=== PATIENT | male | born 1940 | race Caucasian/White ===

== ENCOUNTER 2019-11-18 08:50 | Day surgery (SDC) | payer MEDICARE, BC ==
[2019-11-17 16:17] LABS: BASOPHILS % (AUTO) 0.7 % (0-1); EOSINOPHILS # (AUTO) 0.2 X10'3 (0-0.9); EOSINOPHILS % (AUTO) 3.8 % (0-6); HEMATOCRIT 41.1 % (42.0-52.0); HEMOGLOBIN 13.9 g/dl (14.0-17.9); LYMPHOCYTES # (AUTO) 1.1 X10'3 (1.1-4.8); LYMPHOCYTES % (AUTO) 19.6 % (21-51); MEAN CORPUSCULAR HEMOGLOBIN 32.3 PG (27.0-31.0); MEAN CORPUSCULAR HGB CONC 33.7 g/dL (33.0-36.5); MEAN CORPUSCULAR VOLUME 95.7 FL (78-98); MEAN PLATELET VOLUME 10.9 FL (7.4-10.4); MONOCYTES # (AUTO) 0.5 X10'3 (0-0.9); MONOCYTES % (AUTO) 8.9 % (2-12); NEUTROPHILS # (AUTO) 3.9 X10'3 (1.8-7.7); PLATELET COUNT 122 X10'3 (140-440); RED CELL DISTRIBUTION WIDTH 13.4 % (11.5-14.5); WHITE BLOOD COUNT 5.8 X10'3 (4.5-11.0)
[2019-11-17 16:28] LABS: PARTIAL THROMBOPLASTIN TIME 30 SECONDS (22-32)
[2019-11-17 16:32] LABS: ALANINE AMINOTRANSFERASE 53 U/L (12-78); ALBUMIN 3.4 G/DL (3.4-5.0); ALKALINE PHOSPHATASE 60 IU/L (46-116); ANION GAP 7 (8-16); ASPARTATE AMINO TRANSFERASE 37 U/L (10-37); BILIRUBIN,TOTAL 0.9 MG/DL (0.1-1.0); BLOOD UREA NITROGEN 28 MG/DL (7-18); BUN/CREATININE RATIO 20.4 (5.4-32.0); CALCIUM 8.9 MG/DL (8.5-10.1); CHLORIDE 111 MMOL/L (99-107); CREATININE 1.37 MG/DL (0.60-1.10); GLUCOSE 97 MG/DL (70-104); SODIUM 144 MMOL/L (135-145); TOTAL CARBON DIOXIDE 26.1 MMOL/L (24-32); TOTAL PROTEIN 6.9 G/DL (6.4-8.2); eGFR 50 ML/MIN
[~2019-11-18] VITALS: Ht 182.9 cm; Wt 89.9 kg
[2019-11-18] VITALS (14 sets, daily range): BP systolic 133–159; BP diastolic 53–103
[2019-11-18] MEDS ORDERED: insulin Lispro (HumaLOG) vial - multi-dose SQ SCH (09:20)
[2019-11-18] MEDS ORDERED: diphenhydrAMINE 25mg capsule PO PRN (09:20)
[2019-11-18] MEDS ORDERED: dextrose ORAL solution 15 GM/59 ML bottle PO PRN ×2 (09:20)
[2019-11-18] MEDS ORDERED: LORazepam 0.5 MG tablet PO PRN (09:20)
[2019-11-18] MEDS ORDERED: glucagon, human recombinant 1mg kit SUBCUT PRN (09:20)
[2019-11-18] MEDS ORDERED: normal saline 1,000 ML IV SCH (09:20)
[2019-11-18] MEDS ORDERED: dextrose 50%-water 50ml dispensing syringe IV PRN ×2 (09:20)
[2019-11-18] MEDS ORDERED: nitroGLYCERIN 0.4mg SUBLingual tab SL PRN (09:20)
[2019-11-18] MEDS ORDERED: NIFE60TA79 PO (10:10)
[2019-11-18] MEDS ORDERED: PANT40TA4 PO (10:10)
[2019-11-18] MEDS ORDERED: FLO0.4C PO (10:10)
[2019-11-18] MEDS ORDERED: AMLO2.5T2 PO (10:10)
[2019-11-18] MEDS ORDERED: METF-950 PO (10:10)
[2019-11-18] MEDS ORDERED: SIMV-42 PO (10:10)
[2019-11-18] MEDS ORDERED: ERGO400C PO (10:10)
[2019-11-18] MEDS ORDERED: LISI-600 PO (10:10)
[2019-11-18] MEDS ORDERED: NIFEDIAC PO (10:10)
[2019-11-18] MEDS ORDERED: MULT-227 PO (10:10)
[2019-11-18] MEDS ORDERED: METO-395 PO (10:10)
[2019-11-18] MEDS ORDERED: TADA20TA PO (10:13)
[2019-11-18] MEDS ORDERED: ASPI-842 PO (10:14)
[2019-11-18] MEDS ORDERED: midazolam 2 mg/2 ml injection ONE ×2 (10:27→11:11)
[2019-11-18] MEDS ORDERED: fentaNYL/PF 50MCG/1 ML 2ML syringe ONE (10:28)
[2019-11-18] MEDS ORDERED: iohexol 350 MG/ML 50ML vial IV ONE (10:28)
[2019-11-18] MEDS ORDERED: iohexol 350MG/ML 100ml bottle IV ONE (10:28)
[2019-11-18] MEDS ORDERED: LIDOcaine 1% (10mg/ml)w/preservative injection 20ml MDV ONE (10:28)
[2019-11-18] MEDS ORDERED: nitroGLYCERIN-Tridil 50MG/D5W 250 ML IV ONE (11:11)
[2019-11-18 11:30] LABS: ISTAT HGB ART 12.9 g/dl (14.0-18.0); ISTAT Hct ART 38 %PCV (42-52); ISTAT O2 SATURATION ARTERIAL 94 % (95-98); ISTAT SOURCE ART
[2019-11-18 11:45] LABS: ISTAT Hct MIX 38 %PCV (42-52); ISTAT O2 SATURATION MIX VENOUS 77 % (60-80); ISTAT SOURCE MIX
[2019-11-18] MEDS ORDERED: ondansetron/PF 4mg/2ml inj IV PRN (12:00)
[2019-11-18] MEDS ORDERED: HYDROcodone/acetaminophen 5mg/325mg tablet PO PRN (12:00)
[2019-11-18] MEDS ORDERED: proCHLORperazine 10 MG/2 ml inj IV PRN (12:05)
[2019-11-18] MEDS ORDERED: OXAZEpam 15mg capsule PO PRN (12:05)
[2019-11-18] MEDS ORDERED: hydrALAZINE 20mg/ml inj. IV ONE (12:05)
[2019-11-18] MEDS ORDERED: HYDROcodone/acetaminophen 10/325mg tab PO PRN (12:05)
[2019-11-18 17:47] LABS: HEMOGLOBIN A1C 5.5 % (4.5-6.2)
[2019-11-18] MEDS ORDERED: insulin glargine (Lantus) pen - multi-dose SQ SCH (21:00)
== END 2019-11-18 19:00 | disposition home or self-care (01) ==
LOC: SSTAY O 08:50
PROVIDERS: ATTEND Internal Medicine Cardiovascular Disease
DX: R94.39 Abnormal result of other cardiovascular function study (principal); I25.10 Atherosclerotic heart disease of native coronary artery without angina pectoris; M47.9 Spondylosis, unspecified; K21.9 Gastro-esophageal reflux disease without esophagitis; E11.9 Type 2 diabetes mellitus without complications; J44.9 Chronic obstructive pulmonary disease, unspecified; Z98.41 Cataract extraction status, right eye; Z98.42 Cataract extraction status, left eye; Z87.891 Personal history of nicotine dependence; Z98.890 Other specified postprocedural states; Z79.01 Long term (current) use of anticoagulants; Z79.899 Other long term (current) drug therapy; Z79.82 Long term (current) use of aspirin; Z86.73 Personal history of transient ischemic attack (TIA), and cerebral infarction without residual deficits; R06.00 Dyspnea, unspecified
CPT/HCPCS: 36415; 71046; 80053; 82803; 82948; 83036; 83880; 85014; 85025; 85610; 85730; 93460; 99152; 99153; C1760; C1769; J1644; J1815; J2001; J2250; J3010; J7030; Q0163; Q9967; A4620; A6258; J3490

== ENCOUNTER 2024-07-02 10:21 | Outpatient (CLI) | payer MEDICARE, BC ==
[~2024-07-02 10:21] MED LIST: AMLO2.5T2 PO; ASPI-842 PO; ERGO400C PO; FLO0.4C PO; LISI20TA28 PO; METF-1203 PO; METO-395 PO; MULT-227 PO; NIFE-73 PO; PANT40TA54 PO; SIMV-42 PO; TADA20TA PO; iohexol 350 MG/ML 50ML vial IV ONE; iohexol 350MG/ML 100ml bottle IV ONE
== END 2024-07-02 23:59 | disposition home or self-care (01) ==
LOC: RAD 10:21
PROVIDERS: ATTEND Surgery
DX: I70.203 Unspecified atherosclerosis of native arteries of extremities, bilateral legs (principal); I70.1 Atherosclerosis of renal artery; I77.4 Celiac artery compression syndrome; I70.8 Atherosclerosis of other arteries; I70.0 Atherosclerosis of aorta; J98.11 Atelectasis; J98.4 Other disorders of lung; N28.1 Cyst of kidney, acquired
CPT/HCPCS: 75635; Q9967

== ENCOUNTER 2024-09-27 13:26 | Inpatient (IN) | payer MEDICARE, BC ==
[~2024-09-27] VITALS: Ht 182.9 cm; Wt 77.2 kg
[~2024-09-27 13:26] MED LIST changes: -AMLO2.5T2 PO; +APIX5TAB3 PO; -ASPI-842 PO; +ASPI81TA52 PO; +CEFD300C3 PO; +CHOL500061 PO; +DOXY25TA19 PO; -ERGO400C PO; -FLO0.4C PO; -METF-1203 PO; -MULT-227 PO; -PANT40TA54 PO; -iohexol 350 MG/ML 50ML vial IV ONE; -iohexol 350MG/ML 100ml bottle IV ONE
[2024-09-27] MEDS ORDERED: TRAM50TA2 PO (14:50)
[2024-09-27] MEDS ORDERED: METF-1203 PO (14:50)
[2024-09-27 15:46] LABS: BASOPHILS % (AUTO) 0.2 % (0-1); EOSINOPHILS % (AUTO) 0.3 % (0-6); HEMATOCRIT 40.9 % (42.0-52.0); HEMOGLOBIN 13.6 g/dl (14.0-17.9); LYMPHOCYTES # (AUTO) 0.8 X10'3 (1.1-4.8); LYMPHOCYTES % (AUTO) 4.6 % (21-51); MEAN CORPUSCULAR HEMOGLOBIN 30.6 PG (27.0-31.0); MEAN CORPUSCULAR HGB CONC 33.3 g/dL (33.0-36.5); MEAN CORPUSCULAR VOLUME 91.8 FL (78-98); MEAN PLATELET VOLUME 11.1 FL (7.4-10.4); MONOCYTES # (AUTO) 1.1 X10'3 (0-0.9); MONOCYTES % (AUTO) 6.6 % (2-12); NEUTROPHILS # (AUTO) 15.4 X10'3 (1.8-7.7); NEUTROPHILS % (AUTO) 88.3 % (42-75); PLATELET COUNT 149 X10'3 (140-440); RED BLOOD COUNT 4.45 X10'6 (4.70-6.10); RED CELL DISTRIBUTION WIDTH 12.7 % (11.5-14.5); WHITE BLOOD COUNT 17.4 X10'3 (4.5-11.0)
[2024-09-27 15:55] LABS: POTASSIUM 3.8 MMOL/L (3.5-5.1)
[2024-09-27 16:02] LABS: ALBUMIN 2.9 G/DL (3.4-5.0); ANION GAP 9 (8-16); BLOOD UREA NITROGEN 36 MG/DL (7-18); BUN/CREATININE RATIO 22.5 (10.0-20.0); CALCIUM 9.2 MG/DL (8.5-10.1); CHLORIDE 100 MMOL/L (99-107); GLUCOSE 127 MG/DL (70-104); SODIUM 136 MMOL/L (135-145); TOTAL CARBON DIOXIDE 26.9 MMOL/L (24-32); eCRCL 36 ML/MIN; eGFR 41 ML/MIN
[2024-09-27] MEDS: piperacillin/tazo 3.375gm/50ml 50 ML IV ONE (16:32)
[2024-09-27] MEDS: ringers solution, lacted 1,000 ML IV ONE (16:32)
--- NOTE | 2024-09-27 16:43 | RADIOLOGY REPORT ---
CHEST RADIOGRAPH Indication: fever Technique: Single frontal view of the chest was obtained Comparison: DI CHEST,SINGLE VIEW on DOS: 09/04/24 FINDINGS: Lines and Tubes: None Lungs and Pleura: No focal consolidation. No effusion. No pneumothorax. Cardiomediastinal contours: Unremarkable Bones: No acute osseous abnormality. IMPRESSION: 1. No acute cardiopulmonary disease.
[2024-09-27] MEDS: normal saline 1000ml 1,000 ML IV SCH ×2 (17:05→20:22)
--- NOTE | 2024-09-27 17:11 | Physician Documentation ---
History of Present Illness ~ Chief Complaint: Wound Re-Check Stated Complaint: FEVER/OPEN WOUND Time Seen by MD: 16:04 OK to notify your PCP?: Yes HPI 84-year-old gentleman who has right femoral endarterectomy done by Dr. Lorenzo August and discharged from the in the [facility] on 22 of September came back to the ER by ambulance because of low-grade fever and concern for infection. Patient does not have any respiratory symptoms and there is no increasing pain or swelling in the wound area as well as lower extremities especially right side. He does have a small grade 1 decubitus ulceration in the sacral area. The area has no pain or skin break. Patient has been ambulatory with a wound VAC. no nausea vomiting, no chest pain no shortness of breath. No urinary symptoms. Tetanus within 5 years?: No Medication Reconciliation Allergies: Coded Allergies: No Known Allergies (Unverified , 09/27/24) Scheduled Apixaban (Eliquis), 1 TAB PO BID, (Reported) Aspirin (Aspirin EC), 1 TAB PO DAILY Cholecalciferol (Vitamin D3) (Vitamin D3), 1 TAB PO DAILY, (Reported) Ciprofloxacin/Ciprofloxa Hcl (Ciprofloxacin Er 500 Mg Tablet), 1 TAB PO Q12H Doxylamine Succinate (Unisom Sleep Aid), 25 MG PO HS, (Reported) Lactobacillus Rhamnosus (Culturelle), 10,000 MMU PO BID Lisinopril (Lisinopril), 40 MG PO DAILY Metformin HCl (Metformin HCl), 1 TAB PO BID, (Reported) Metoprolol Succinate (Metoprolol Succinate), 1 TAB PO BID, (Reported) Nifedipine (Afeditab Cr), 1 TAB PO DAILY, (Reported) Simvastatin* (Zocor*), 1 TAB PO DAILY, (Reported) Tadalafil (Cialis), 1 TAB PO PRN, (Reported) Scheduled PRN Tramadol Hcl (Tramadol Hcl), 1 TAB PO Q4H PRN for pain, (Reported) Discontinued Medications Cefdinir (Cefdinir), 1 CAP PO Q12H Lisinopril (Lisinopril), 1 TAB PO DAILY, (Reported) Past Medical History Patient History: FH: heart disease MOTHER, , Age: 68 FH: lung cancer FATHER (liver and lung cancer), , Age: 72 Review of Systems ROS As stated above in the HPI, otherwise all systems are reviewed and negative. Physical Exam Vital Signs: RN Vital Signs have been reviewed: Yes, Temperature: 98.0, Source: Oral, Heart Rate: 67, Respiratory Rate: 17, BP: 160/60, Pulse Oximetry: 98, Weight: 77.200 Oxygen Flow Rate: 0 Physical Exam Reviewed vital signs and they are well within normal range. Const: Patient is awake alert and active , not in discomfort Head: Atraumatic Eyes: Normal Conjunctiva ENT: Normal External Ears, Nose and Mouth. Moist mucous membranes Neck: Full range of motion. No meningismus Resp: Clear to auscultation bilaterally. Normal work of breathing Cardio: Regular rate and rhythm, no murmurs. Skin well perfused Abd: Soft, non-tender, non-distended. Normal bowel sounds. No rebound or guard ing Skin: No petechiae or rashes. Warm and dry Back: No midline or flank tenderness Ext: No cyanosis, or edema Extremities: Left side is normal Right side lower leg there is no undue redness or so tenderness. No calf tenderness. Dorsalis pedis is difficult to palpate. The toes are warm and good range of movement. Neuro: Awake and alert Psych: Normal Mood and Affect Progress Progress Note 1930: The case was discussed with the hospitalists who were informed on the alvarado ents case and kindly agreed to admission of the patients. Results/Orders Reviewed/noted all lab results: Yes Results/Orders Orders - TWIN HOUSE MD Page Hospitalist (09/27/24 18:40) Fill Out Med Reconciliation (09/27/24 18:40) Laboratory Tests Test 09/27/24 15:01 09/27/24 17:06 09/27/24 17:22 White Blood Count 17.4 H Red Blood Count 4.45 L Hemoglobin 13.6 L Hematocrit 40.9 L Mean Corpuscular Volume 91.8 Mean Corpuscular Hemoglobin 30.6 Mean Corpuscular Hemoglobin Concent 33.3 Red Cell Distribution Width 12.7 Platelet Count 149 Mean Platelet Volume 11.1 H Neutrophils (%) (Auto) 88.3 H Lymphocytes (%) (Auto) 4.6 L Monocytes (%) (Auto) 6.6 Eosinophils (%) (Auto) 0.3 Basophils (%) (Auto) 0.2 Neutrophils # (Auto) 15.4 H Lymphocytes # (Auto) 0.8 L Monocytes # (Auto) 1.1 H Eosinophils # (Auto) 0.0 Basophils # (Auto) 0.0 CBC Comment Sodium Level 136 Potassium Level 3.8 Chloride Level 100 Carbon Dioxide Level 26.9 Anion Gap 9 Blood Urea Nitrogen 36 H Creatinine 1.60 H Estimated GFR/1.73 m2 41 BUN/Creatinine Ratio 22.5 H Glucose Level 127 H Osmolality 295 Lactic Acid Level 2.8 H 2.3 H Calcium Level 9.2 C-Reactive Protein 4.70 H Albumin 2.9 L Procalcitonin < 0.05 Chemistry Comments Urine Specimen Description Non-specified Urine Color Yellow Urine Clarity Slightly cloudy Urine pH 6.0 Urine Specific [place] 1.010 Urine Protein Trace Urine Glucose (UA) Negative Urine Ketones Trace H Urine Occult Blood Moderate H Urine Nitrite Positive H Urine Bilirubin Negative Urine Urobilinogen 0.2 Urine Leukocyte Esterase Small H Urine RBC 20-50 Urine WBC 30-50 H Urine Squamous Epithelial Cells None seen Urine Bacteria 1+ Urine Mucus Few Urine Culture Indicated Indicated Volume Urine Centrifuged 10 ml Urine Comment Microbiology Date/Time Source Procedure Growth Status 09/27/24 18:06 Urine Nonspecified Urine Culture - Final Pseudomonas Aeruginosa Enterococcus Faecalis Complete 09/27/24 15:57 Blood Arm Right Blood Culture - Preliminary NO GROWTH AFTER 4 DAYS Resulted Re-Evaluation Re-Evaluation : Re-Evaluation: Improved Progress Patient was seen by the prior physician and signed out to me for admission. Patient is on CAT scan at a questionable hematoma versus abscess postoperatively for right femoral endarterectomy fever leukocytosis was then admitted to the hospitalist service. Patient already received antibiotics laboratory work blood cultures from the morning physician. EKG/XRAY/CT/US/VASC/MRI Chest X-Ray : Additional Comments CHEST RADIOGRAPH Indication: fever Technique: Single frontal view of the chest was obtained Comparison: DI CHEST,SINGLE VIEW on DOS: 09/04/24 FINDINGS: Lines and Tubes: None Lungs and Pleura: No focal consolidation. No effusion. No pneumothorax. Cardiomediastinal contours: Unremarkable Bones: No acute osseous abnormality. IMPRESSION: 1. No acute cardiopulmonary disease. Electronically Signed by:AMRIT HO MD Date & Time: 09/27/[address] #1: Impression Patient: JONAS RUDOLPH Medical Record: [id number] [facility] : 1940, Age: 84 Sex: Male Location: ER Patient Status: [facility] ER Service Date/Time: 09/27/241745 Ordering Physician: AGUSTÍN RAMIREZ MD Exam: CT LOWER EXTREMITY INDICATION: pain right leg COMPARISON: None TECHNIQUE: CT of the right was performed without contrast. Volume transverse images were obtained and reconstructed in multiple planes using bone and soft tissue algorithms. CONTRAST: None Radiation Dose Information: CT Dose: CTDI volume is 17.76 mGy. Dose-length product is 1241.77 mGy*cm FINDINGS: The alignment is normal. The joint spaces are normal. There is no fracture, dislocation, or focal osseous lesions. Right total knee arthroplasty. The soft tissues are normal. IMPRESSION: 1. Distal femur intact. 2. Right total knee arthroplasty in place with beam hardening artifact obscuring detail. 3. All CT scans at this medical facility are performed using dose modulation techniques as appropriate to a performed exam including the following: Automated exposure control was utilized; adjustment of the MA and/or KV according to patient size; and use of iterative reconstruction technique. Electronically Signed by:JONAS BROOKS Jr. DO Date & Time: 09/27/241834 CT #2: Impression History: pain Comparison Study: 07/02/2024 Technique: Multidetector spiral CT of the pelvis was performed from iliac crests to pubic symphysis. No intravenous contrast was administered. Axial, coronal and sagittal multiplanar reformats were performed by the technologist on a separate workstation. Radiation Dose : CT Dose: CTDI volume is 17 mGy. Dose-length product is 613 mGy*cm Findings: Visualized bowel: Unremarkable. Ascites: Absent Lymphadenopathy: No pelvic or mesenteric lymphadenopathy. Pelvis Wall : Interval postsurgical changes related to the right groin with a wound VAC and surgical skin cheng in place. There is a regional superficial collection along the course of the right femoral vessels, measuring 7.7 x 2.7 x 10.0 cm. There is adjacent fat stranding in the right proximal thigh. Vasculature: The visualized abdominal aorta is normal in size and caliber. Abdominal and pelvic vessels are limited in evaluation without intravenous contrast. Moderate atherosclerotic calcifications noted. Pelvic Organs: Unremarkable Musculoskeletal: No aggressive focal bony lesions, acute fractures or dislocation. Degenerative changes. Bladder: Redemonstration of suprapubic catheter. IMPRESSION: 1. Interval postsurgical changes related to the right groin. Regional superficial collection along the course of the right femoral vessels, measuring 7.7 x 2.7 x 10.0 cm, favor hematoma versus seroma, with abscess not excluded, limited in evaluation without intravenous contrast. Electronically Signed by:AMRIT HO MD Date & Time: 09/27/241846 Medical Decision Making Findings During the physical examination, the findings suggestive of acute life- threatening condition such as JVD, tracheal deviation, acidotic breathing, noisy stridorous breath sounds, pulses paradoxus, muffled heart sounds, unequal breath sounds, abdominal rigidity and rebound tenderness, focal neurological deficits, cool clammy skin, severe hypotension, severe tachycardia or bradycardia are absent. The patient is concerned about the wound infection. There is no other source of low-grade fever. Patient does not have any respiratory symptoms, flu-like symptoms, urinary symptoms. His bed sore is grade 1 and is not broken. (skin intact) Patient is given Zosyn after culture and we will be admitted to the hospital. I informed Dr. Lorenzo arrived the patient and he wants the patient to have CT scan of the pelvis without contrast. Patient will be admitted to the hospitalist services. Differential Dx:Considerations: Include: Abscess, Cellulitis, Dressing change, Healing wound, Other Departure Disposition: 09 ADMITTED INPATIENT Admitted to Inpatient Unit: to hospitalist, to surgeon Admission Level of Care: Med/Surg with Tele Impression: Primary Impression: Low grade fever Additional Impression: Visit for wound check Condition: Guarded Referrals: NO PRIMARY CARE PROVIDER (PCP) Prescriptions Lactobacillus Rhamnosus (Culturelle) 10 Billion Cell Capsule 28574 MMU PO BID for 30 Days, #60 CAP Prov: TIFFANIE PENALOZA 10/01/24 Lisinopril (Lisinopril) 20 Mg Tablet 40 MG PO DAILY for 30 Days, #60 TAB Prov: TIFFANIE PENALOZA 10/01/24 Ciprofloxacin/Ciprofloxa Hcl (Ciprofloxacin Er 500 Mg Tablet) 500 Mg Tbmp.24hr 1 TAB PO Q12H for 5 Days, #10 TAB Prov: TIFFANIE PENALOZA 10/01/24 Education Educated: Patient Educated regarding: diagnosis Signature Scribe Signature: x Scribed for Harsh Vasquez MD by Coco Porras . 09/27/24 19:57 (melanie atkins) Attestation: The note accurately reflects work and decisions made by me.Twin House MD 10/02/24 08:19 AGUSTÍN Bella MD September 27, 2024 17:11 COCO VILLANUEVA September 27, 2024 19:57 TWIN HOUSE MD October 02, 2024 08:19
[2024-09-27 17:59] LABS: BILIRUBIN,URINE NEGATIVE (Neg); CLARITY,URINE SLIGHTLY CLOUDY (Clear); COLOR,URINE YELLOW (Yellow); GLUCOSE, URINE NEGATIVE (Neg); KETONES,URINE TRACE mg/dl (Neg); LEUKOCYTE ESTERASE ,URINE SMALL (Neg); NITRITES, URINE POSITIVE (Neg); OCCULT BLOOD,URINE MODERATE (Neg); PROTEIN,URINE TRACE mg/dl (Neg); UROBILINOGEN,URINE 0.2 E.U/dL (0.2-1.0)
[2024-09-27 18:04] LABS: UA COLLECTION TYPE NON-SPECIFIED
[2024-09-27 18:05] LABS: BACTERIA,URINE 1+ /HPF (Neg); RBC,URINE 20-50 /HPF (0-2)
[2024-09-27 18:06] LABS: MUCUS STRANDS FEW /LPF (Neg); SQUAMOUS EPITHELIAL CELL,UR NONE SEEN /LPF (FEW); WBC,URINE 30-50 /HPF (0-4)
--- NOTE | 2024-09-27 18:38 | RADIOLOGY REPORT ---
INDICATION: pain right leg COMPARISON: None TECHNIQUE: CT of the right was performed without contrast. Volume transverse images were obtained and reconstructed in multiple planes using bone and soft tissue algorithms. CONTRAST: None Radiation Dose Information: CT Dose: CTDI volume is 17.76 mGy. Dose-length product is 1241.77 mGy*cm FINDINGS: The alignment is normal. The joint spaces are normal. There is no fracture, dislocation, or focal osseous lesions. Right total knee arthroplasty. The soft tissues are normal. IMPRESSION: 1. Distal femur intact. 2. Right total knee arthroplasty in place with beam hardening artifact obscuring detail. 3. All CT scans at this medical facility are performed using dose modulation techniques as appropriat e to a performed exam including the following: Automated exposure control was utilized; adjustment of the MA and/or KV according to patient size; and use of iterative reconstruction technique.
--- NOTE | 2024-09-27 18:52 | RADIOLOGY REPORT ---
History: pain Comparison Study: 07/02/2024 Technique: Multidetector spiral CT of the pelvis was performed from iliac crests to pubic symphysis. No intravenous contrast was administered. Axial, coronal and sagittal multiplanar reformats were pe rformed by the technologist on a separate workstation. Radiation Dose : CT Dose: CTDI volume is 17 mGy. Dose-length product is 613 mGy*cm Findings: Visualized bowel: Unremarkable. Ascites: Absent Lymphadenopathy: No pelvic or mesenteric lymphadenopathy. Pelvis Wall : Interval postsurgical changes related to the right groin with a wound VAC and surgical skin cheng in place. There is a regional superficial collection along the course of the right femor al vessels, measuring 7.7 x 2.7 x 10.0 cm. There is adjacent fat stranding in the right proximal thig h. Vasculature: The visualized abdominal aorta is normal in size and caliber. Abdominal and pelvic vess els are limited in evaluation without intravenous contrast. Moderate atherosclerotic calcifications n oted. Pelvic Organs: Unremarkable Musculoskeletal: No aggressive focal bony lesions, acute fractures or dislocation. Degenerative duarte es. Bladder: Redemonstration of suprapubic catheter. IMPRESSION: 1. Interval postsurgical changes related to the right groin. Regional superficial collection along th e course of the right femoral vessels, measuring 7.7 x 2.7 x 10.0 cm, favor hematoma versus seroma, w ith abscess not excluded, limited in evaluation without intravenous contrast.
[2024-09-27] MEDS ORDERED: potassium Cl 20 mEq SR tablet PO PRN ×2 (19:45)
[2024-09-27] MEDS ORDERED: magnesium Cl slow-release 64mg tablet PO PRN (19:45)
[2024-09-27] MEDS ORDERED: ondansetron/PF 4mg/2ml inj IV PRN (19:45)
[2024-09-27] MEDS ORDERED: acetaminophen 325mg tablet PO PRN (19:45)
[2024-09-27] MEDS ORDERED: magnesium sulf-water 4G/100mL 100 ML IV PRN (19:45)
[2024-09-27] MEDS ORDERED: potassium Cl 40MEQ/1/2NS 520ml 520 ML IV PRN (19:45)
[2024-09-27] MEDS ORDERED: morphine 2 MG/ML inj. syringe IV PRN ×2 (19:45)
[2024-09-27] MEDS ORDERED: mag hydrox/Alum hydrox/simeth 30ml oral suspension PO PRN (19:45)
[2024-09-27] MEDS ORDERED: magnesium sulf-water 2g/50mL 50 ML IV PRN (19:45)
[2024-09-27] MEDS: K and/or MAG REPLACEMENT MC SCH (20:14)
[2024-09-27] MEDS: heparin, porcine 5000 units/ml vial SQ SCH (20:23)
[2024-09-27] MEDS: docusate sod 100mg capsule PO SCH (20:23)
--- NOTE | 2024-09-27 21:11 | HISTORY AND PHYSICAL-Residence ---
History & Physical Providers to CC Resident Creating Document: BULL LORENZO, RES ~ History of Present Illness Primary Medical Doctor: Dr. Dallas Stanton. Reason for Admit\Complaint: Fever sensation History of Present Illness PCP: Dr. Dallas Stanton. Hide Puller: Dr. Henriquez Urologist: Dr Hoang 84-year-old male patient with past medical history of AFib, prostate cancer, melanoma, hypertension, right femoral artery stenosis, dyslipidemia came to the hospital with chief complaint of subjective fever. The patient reports that he noticed this morning fever sensation and associated nausea. The patient also noticed some generalized weakness for approximately two days. Due to his fever sensation his took a thermometer and measured his temperature noticing 99.7-100 F degrees which prompted him to call to the ambulance and come to the hospital due to concerns of infection. The patient denies any diarrhea, abdominal pain, cough, shortness of breath, chest pain, palpitations. The patient mentioned that he got a right femoral artery stenosis, he underwent femoral endarterectomy by Dr. Lorenzo on August. The patient has a wound VAC. Allergies: Coded Allergies: No Known Allergies (Unverified , 09/27/24) Home Medications Home Medications Active Aspirin EC (Aspirin) 81 Mg Tablet.dr 1 Tab PO DAILY 30 Days Cefdinir 300 Mg Capsule 1 Cap PO Q12H 7 Days Reported Metformin HCl 500 Mg Tablet 1 Tab PO BID Tramadol Hcl (Tramadol HCl) 50 Mg Tablet 1 Tab PO Q4H PRN Unisom Sleep Aid (Doxylamine Succinate) 25 Mg Tablet 25 Mg PO HS Vitamin D3 (Cholecalciferol (Vitamin D3)) 125 Mcg (5000 Unit) Tab.rapdis 1 Tab PO DAILY Eliquis (Apixaban) 5 Mg Tablet 1 Tab PO BID Metoprolol Succinate 25 Mg Tab.sr.24h 1 Tab PO BID Cialis (Tadalafil) 20 Mg Tablet 1 Tab PO PRN Lisinopril 20 Mg Tablet 1 Tab PO DAILY Afeditab Cr (Nifedipine) 60 Mg Tablet.sa 1 Tab PO DAILY Zocor* (Simvastatin) 20 Mg Tablet 1 Tab PO DAILY Past Medical History Past Medical History AFib. Prostate cancer. Melanoma. Hypertension. Right femoral artery stenosis s/p endarterectomy. Dyslipidemia. Past Surgical History Surgical History Comment Bilateral knee replacement. Left inguinal surgical repair. Right femoral endarterectomy. Family History Family History: FH: heart disease MOTHER, , Age: 68 FH: lung cancer FATHER (liver and lung cancer), , Age: 72 Past Social History Smoking: Quit greater than 1 year (The patient endorses that he quit smoking 20 years ago. He used to smoke pack a day for 44 years.) Alcohol Use: Sober (The patient endorses that he used to drink one martini a day for two years. 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 HEENT: Conjunctive are pink, sclerae clear, no icterus, pupil is equal in both sides, reactive to light, no ear discharge, no pharyngeal erythema or an edema. Neck: Supple, no JVD, no lymphadenopathy and thyromegaly. Chest: Equal air entry on both lungs, no additional sounds no rhonchi no wheezing at the moment. Cardiovascular: S1-S2 irregular rhythm and rate, no gallops, no rubs, no murmurs Abdomen: No visible peristalsis, Bowel sounds present on auscultation, soft, nontender, no guarding, no rigidity, presence of suprapubic catheter. Extremities: No obvious deformities, no pitting edema bilaterally, capillary refill intact, diminished pulse in the right lower extremity, presence of wound VAC in the right lower iliac fossa. Central Nervous System: No focal neurological deficits, no motor or sensory weakness in all 4 extremities, could move all 4 extremities, 2+ deep tendon reflexes, negative Babinski. Musculoskeletal: No joint swelling, deformities, inflammations, and no scoliosis and back tenderness Skin: Presence of bedsore at the level of sacral area. Diagnostic Data Last Recorded Lab Results: 09/27/24 1501 09/27/24 1501 Advance Care Planning Advanced Care plannin - 30 Minutes (I spent a total of 17 minutes on reviewing various resuscitative measures/ACP with the patient at the time of admission. The patient has decided on a full code status.) Additional Plan Assessment and plan: 84-year-old male patient came to the hospital with chief complaint of generalized weakness and subjective fever. Sepsis (sepsis criteria: WBC 17.4, elevated temperature, presence of source of infection): Urinary tract infection: History of prostate cancer: The patient came to the hospital with chief complaint of generalized weakness and subjective fever. The patient has chronic Nobles catheter. Being followed by Dr. Hoang, case generally changes his catheter every month. Last change one week ago. Urinalysis is positive for UTI. Lactic acid 2.8-2.3. Follow-up urine and blood culture. The patient is currently on Zosyn and vancomycin. Culturelle [address] mmu b.i.d. Hematoma versus seroma versus abscess: The patient underwent right femoral endarterectomy on August. CT scan of the pelvis: Interval postsurgical changes related to the right groin. Regional superficial collection along the course of the right femoral vessels, measuring 7.7 x 2.7 x 10.0 cm, favor hematoma versus seroma, with abscess not excluded, limited in evaluation without intravenous contrast. Follow-up blood culture. Lactic acid 2.8-2.3. Dr. Lorenzo consulted. Awaiting recommendations. We will keep the patient NPO. Currently on Zosyn and vancomycin. Acute kidney injury on CKD likely secondary to renal tubular stasis: Creatinine 1.60, GFR 41, BUN/creatinine ratio 22.5. Follow-up urine lytes. NS at 80 mL/hour. AFib rate controlled: We will continue to use home medication metoprolol nifedipine after med reconciliation. We will hold Eliquis for possible intervention. Hypertension: Metoprolol succinate 25 mg. 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 Currently healing. Wound care consulted Code status: Full code DVT prophylaxis: SCDs Analgesia/sedation: Morphine Line/tube: PIV GI prophylaxis: None Nutrition: NPO PT: Ordered Prognosis: Guarded Disposition: The patient will be admitted for further management. Bull Arias Internal Medicine Resident [facility] Date of Service: September 27, 2024 Billing Provider: ADALBERTO SANTOS MD, FRANCO LUIS, RES September 27, 2024 21:11
--- NOTE | 2024-09-27 21:23 | ELECTROCARDIOGRAPH REPORT ---
[facility] Test Date: 2024-09-27 Test Time: 21:19:37 Pat Name: JONAS RUDOLPH Department: [facility]-ED HOLD Patient ID: [facility]-[id number] Room: ED 11 1 Gender: M Director Telecommunications: : 1940 Requested By: TWIN VIRAMONTES Order Number: [id number] Reading MD: Dr. Twin Viramontes Measurements Intervals [place] Rate: 66 P: 0 OH: 0 QRS: -65 QRSD: 136 T: 62 QT: 481 QTc: 505 Interpretive Statements Atrial fibrillation Paired ventricular premature complexes Left bundle branch block Electronically Signed On 09-27-2024 22:47:[address] Twin Viramontes Please click the below link to view image of tracing.
[2024-09-27 23:15] VITALS: BP 189/71; PULSE 50; RESP 16; TEMP 97.5; O2SAT 99
[2024-09-27] MEDS: lactobacillus rhamnosus 10,000 MMU CELLS/CAPSULE PO SCH (23:20)
[2024-09-27] MEDS ORDERED: VANCOMYCIN 2GM/400ML H20 (PEG) 400 ML IV ONE (23:45)
[2024-09-27 23:53] LABS: OSMOLALITY 295 MOSM/K (280-300)
[2024-09-28] VITALS (11 sets, daily range): BP systolic 125–180; BP diastolic 49–76; PULSE 44–75; RESP 13–18; TEMP 98.2–98.9; O2SAT 97–99
[2024-09-28] MEDS ORDERED: piperacillin/tazo 3.375gm/50ml 50 ML IV SCH
[2024-09-28] MEDS: amLODIPine 5mg tablet PO ONE (00:14)
[2024-09-28] MEDS: VANCOMYCIN 1.75GM/WATER FOR INJ (PEG) 350 ML IVPB IV ONE (01:02)
[2024-09-28] MEDS: normal saline 500ml IV soln 500 ML IV ONE (02:06)
--- NOTE | 2024-09-28 03:59 | ELECTROCARDIOGRAPH REPORT ---
[facility] Test Date: 2024-09-28 Test Time: 03:54:47 Pat Name: JONAS RUDOLPH Department: [facility] 4S Patient ID: [facility]-[id number] Room: ORTHO [facility] B Gender: M Teacher Drama: : 1940 Requested By: NANDINI GRANT Order Number: [id number] Reading MD: Dr. STEFAN Carbajal Measurements Intervals [place] Rate: 47 P: 0 NC: 0 QRS: -65 QRSD: 129 T: 66 QT: 467 QTc: 413 Interpretive Statements Atrial fibrillation Left bundle branch block Electronically Signed On 09-28-2024 13:29:[address] STEFAN Carbajal Please click the below link to view image of tracing.
[2024-09-28] MEDS: piperacillin/tazo 3.375gm/50ml 50 ML IV SCH (04:20)
[2024-09-28 06:35] LABS: BASOPHILS % (AUTO) 0.5 % (0-1); EOSINOPHILS # (AUTO) 0.1 X10'3 (0-0.9); EOSINOPHILS % (AUTO) 1.7 % (0-6); HEMATOCRIT 32.2 % (42.0-52.0); LYMPHOCYTES # (AUTO) 0.7 X10'3 (1.1-4.8); LYMPHOCYTES % (AUTO) 9.1 % (21-51); MEAN CORPUSCULAR HEMOGLOBIN 31.4 PG (27.0-31.0); MEAN CORPUSCULAR HGB CONC 34.3 g/dL (33.0-36.5); MEAN CORPUSCULAR VOLUME 91.8 FL (78-98); MEAN PLATELET VOLUME 10.5 FL (7.4-10.4); MONOCYTES # (AUTO) 0.7 X10'3 (0-0.9); MONOCYTES % (AUTO) 9.2 % (2-12); NEUTROPHILS # (AUTO) 6.5 X10'3 (1.8-7.7); NEUTROPHILS % (AUTO) 79.5 % (42-75); PLATELET COUNT 115 X10'3 (140-440); RED BLOOD COUNT 3.51 X10'6 (4.70-6.10); RED CELL DISTRIBUTION WIDTH 12.7 % (11.5-14.5); WHITE BLOOD COUNT 8.2 X10'3 (4.5-11.0)
[2024-09-28 06:51] LABS: ALANINE AMINOTRANSFERASE 11 U/L (12-78); ALBUMIN 2.2 G/DL (3.4-5.0); ALBUMIN/GLOBULIN RATIO 0.6 (1.1-1.5); ALKALINE PHOSPHATASE 56 IU/L (46-116); ANION GAP 9 (8-16); ASPARTATE AMINO TRANSFERASE 17 U/L (10-37); BILIRUBIN,TOTAL 0.5 MG/DL (0.1-1.0); BLOOD UREA NITROGEN 27 MG/DL (7-18); BUN/CREATININE RATIO 21.8 (10.0-20.0); CALCIUM 8.1 MG/DL (8.5-10.1); CHLORIDE 107 MMOL/L (99-107); CREATININE 1.24 MG/DL (0.60-1.10); GLUCOSE 84 MG/DL (70-104); MAGNESIUM 1.7 MG/DL (1.5-2.4); POTASSIUM 3.7 MMOL/L (3.5-5.1); SODIUM 140 MMOL/L (135-145); TOTAL CARBON DIOXIDE 24.5 MMOL/L (24-32); TOTAL PROTEIN 5.7 G/DL (6.4-8.2); eCRCL 47 ML/MIN; eGFR 55 ML/MIN
[2024-09-28] MEDS: simvastatin 20mg tablet PO SCH (08:25)
[2024-09-28] MEDS: metoprolol succinate 25mg (24-HOUR) SR. Tablet PO SCH (08:25)
--- NOTE | 2024-09-28 11:15 | PROGRESS NOTE- Residence ---
Progress Note - Resident Providers to CC Resident Creating Document: KAYE RODRIGUEZ, CHRISTIE ~ Antibiotic Timeout Antibiotic Ordered?: Yes Subjective Patient was seen and examined at the bedside. He has a wound VAC in the right thigh which was being replaced with the wound care team today. He also has a sacral ulcer for which dressing was done. was at the bedside. She tells that the patient had a femoral endarterectomy on August 28 and a repeat surgery on September 05 for seroma. He also has stenosis in the left side but he was not willing to undergo any other procedure after the complications that he experienced after the . Dr. Lorenzo is aware with the patient, recommendations appreciated. Patient does not have fever today and leukocytosis and lactic acidosis has improved. He does not have any other complaints including pain. He also has a suprapubic catheter in place. Objective Vital Signs Date Time Temp Pulse Resp B/P (MAP) Pulse Ox O2 Delivery O2 Flow Rate FiO2 09/28/24 10:00 98.7 75 13 150/64 (92) 98 Room Air 09/27/24 19:24 0 Result Diagram: 09/28/24 0613 09/28/24 0613 General: Well alert, well oriented, not confused, not agitated, not in acute distress, well cooperated during the physical. HEENT: Conjunctive are pink, sclerae clear, no icterus, pupil is equal in both sides, reactive to light, no ear discharge, no pharyngeal erythema or an edema. Neck: Supple, no JVD, no lymphadenopathy and thyromegaly. Chest: Equal air entry on both lungs, no additional sounds no rhonchi no wheezing at the moment. Cardiovascular: S1-S2 irregular rhythm and rate, no gallops, no rubs, no murmurs Abdomen: No visible peristalsis, Bowel sounds present on auscultation, soft, nontender, no guarding, no rigidity, presence of suprapubic catheter. Extremities: No obvious deformities, no pitting edema bilaterally, capillary refill intact, diminished pulse in the right lower extremity, presence of wound VAC in the right lower iliac fossa. Central Nervous System: No focal neurological deficits, no motor or sensory weakness in all 4 extremities, could move all 4 extremities, 2+ deep tendon reflexes, negative Babinski. Musculoskeletal: No joint swelling, deformities, inflammations, and no scoliosis and back tenderness Skin: Presence of bedsore at the level of sacral area. Assessment Assessment PCP: Dr. Dallas Stanton. Child Nutrition Manager: Dr. Henriquez Urologist: Dr Hoang 84-year-old male patient with past medical history of AFib, prostate cancer, melanoma, hypertension, right femoral artery stenosis, dyslipidemia came to the hospital with chief complaint of subjective fever. The patient reports that he noticed this morning fever sensation and associated nausea. The patient also noticed some generalized weakness for approximately two days. Due to his fever sensation his took a thermometer and measured his temperature noticing 99.7-100 F degrees which prompted him to call to the ambulance and come to the hospital due to concerns of infection. The patient denies any diarrhea, abdominal pain, cough, shortness of breath, chest pain, palpitations. The patient mentioned that he got a right femoral artery stenosis, he underwent femoral endarterectomy by Dr. Lorenzo on August. The patient has a wound VAC. Plan Plan Sepsis, present on admission Urinary tract infection: History of prostate cancer: The patient has chronic Nobles catheter. Being followed by Dr. Hoang, case generally changes his catheter every month. Last change one week ago. Urinalysis is positive for UTI. Lactic acid 2.8-2.3. Follow-up urine and blood culture. The patient is currently on Zosyn and vancomycin. Culturelle [address] [address]mu b.i.d. Mass in the surgical site, not an operative complication Hematoma versus seroma versus abscess: The patient underwent right femoral endarterectomy on August. CT scan of the pelvis: Interval postsurgical changes related to the right groin. Regional superficial collection along the course of the right femoral vessels, measuring 7.7 x 2.7 x 10.0 cm, favor hematoma versus seroma, with abscess not excluded, limited in evaluation without intravenous contrast. Follow-up blood culture. Lactic acid 2.8-2.3. Dr. Lorenzo consulted. Awaiting recommendations. We will keep the patient NPO. Currently on Zosyn and vancomycin. Acute kidney injury on CKD likely secondary to renal tubular stasis: Creatinine improved to 1.24 from 1.60, no kidney disease at baseline Follow-up urine lytes. NS at 80 mL/hour. AFib rate controlled: We will continue to use home medication metoprolol nifedipine after med reconciliation. We will hold Eliquis for possible intervention. Hypertension: Metoprolol succinate 25 mg. 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 Currently healing. Wound care consulted Code status: Full code DVT prophylaxis: SCDs Analgesia/sedation: Morphine Line/tube: PIV GI prophylaxis: None Nutrition: NPO for possible surgery PT: Ordered Prognosis: Guarded Disposition: Pending vascular surgery consultation. Continue care in ortho floor. Kaye Champion Internal Medicine Resident [facility] Date of Service: September 28, 2024 Billing Provider: ZACKARY GILMAN MD Common Visit Codes: [id number] INP/OBS CARE(HIGH) KAYE RODRIGUEZ, RES September 28, 2024 11:15 ZACKARY GILMAN MD September 28, 2024 14:57
[2024-09-28] MEDS: magnesium hydroxide 30ml (MOM) UD suspension PO PRN (17:17)
[2024-09-28] MEDS: DOXYLAMINE SUCCINATE 25 MG PO SCH (20:14)
--- NOTE | 2024-09-28 21:31 | PROGRESS NOTE ---
Progress Note ID Providers to CC ~ Progress Note Progress Note: pt seen and examined-needs ct pelvis with iv contrast when gfr improved GYPSY MOYA MD September 28, 2024 21:30
[2024-09-29] MEDS: vancomycin/NS 1 GM ADD-VANTAGE 250 ML IV SCH (00:48)
[2024-09-29] MEDS ORDERED: VANCOMYCIN 750MG IV in NS 250 ML IV SCH (01:00)
[2024-09-29 05:05] LABS: BASOPHILS % (AUTO) 0.6 % (0-1); EOSINOPHILS # (AUTO) 0.3 X10'3 (0-0.9); EOSINOPHILS % (AUTO) 3.9 % (0-6); HEMATOCRIT 30.6 % (42.0-52.0); HEMOGLOBIN 10.5 g/dl (14.0-17.9); LYMPHOCYTES # (AUTO) 0.9 X10'3 (1.1-4.8); LYMPHOCYTES % (AUTO) 14.3 % (21-51); MEAN CORPUSCULAR HEMOGLOBIN 30.9 PG (27.0-31.0); MEAN CORPUSCULAR HGB CONC 34.2 g/dL (33.0-36.5); MEAN CORPUSCULAR VOLUME 90.3 FL (78-98); MEAN PLATELET VOLUME 9.9 FL (7.4-10.4); MONOCYTES # (AUTO) 0.7 X10'3 (0-0.9); NEUTROPHILS # (AUTO) 4.6 X10'3 (1.8-7.7); NEUTROPHILS % (AUTO) 70.2 % (42-75); PLATELET COUNT 114 X10'3 (140-440); RED BLOOD COUNT 3.39 X10'6 (4.70-6.10); RED CELL DISTRIBUTION WIDTH 12.9 % (11.5-14.5); WHITE BLOOD COUNT 6.6 X10'3 (4.5-11.0)
[2024-09-29 05:27] LABS: ALANINE AMINOTRANSFERASE 18 U/L (12-78); ALBUMIN/GLOBULIN RATIO 0.6 (1.1-1.5); ALKALINE PHOSPHATASE 52 IU/L (46-116); ANION GAP 6 (8-16); ASPARTATE AMINO TRANSFERASE 22 U/L (10-37); BILIRUBIN,TOTAL 0.4 MG/DL (0.1-1.0); BLOOD UREA NITROGEN 23 MG/DL (7-18); BUN/CREATININE RATIO 15.3 (10.0-20.0); CALCIUM 7.8 MG/DL (8.5-10.1); CHLORIDE 111 MMOL/L (99-107); GLUCOSE 85 MG/DL (70-104); MAGNESIUM 1.8 MG/DL (1.5-2.4); POTASSIUM 3.8 MMOL/L (3.5-5.1); SODIUM 142 MMOL/L (135-145); TOTAL PROTEIN 5.4 G/DL (6.4-8.2); eCRCL 39 ML/MIN; eGFR 44 ML/MIN
[2024-09-29 07:30] VITALS: RESP 20; O2SAT 97
[2024-09-29 10:00] VITALS: BP 163/73; PULSE 63; RESP 16; TEMP 98.4; O2SAT 98
[2024-09-29] MEDS: normal saline 1000ml 1,000 ML IV ONE (12:55)
--- NOTE | 2024-09-29 14:16 | PROGRESS NOTE ---
Progress Note ID Providers to CC ~ Progress Note Progress Note: min pain/vss/groin-no erythema-vac in place/labs noted a/p ? soft tissue groin infection-doing well/check us left groin GYPSY MOYA MD September 29, 2024 14:16
[2024-09-29] MEDS ORDERED: iohexol 300mg/ml 100ml inj. ONE (15:10)
--- NOTE | 2024-09-29 15:51 | RADIOLOGY REPORT ---
Indication: Right thigh hematoma versus abscess versus seroma Technique: CT axial images of the pelvic are obtained with intravenous contrast. Coronal and sagitta l reformats were obtained. Radiation Dose Information: CTDI volume is 18 mGy. Dose-length product is 897 mGy*cm Comparison: CT CT PELVIS on DOS: 09/27/24 FINDINGS: Aortic atherosclerotic disease. Suprapubic Nobles catheter. Bladder wall thickening and hyperemia with surrounding stranding. Rectosigmoid colon wall thickening. Colonic diverticular disease. Presacral edema. There is postsurgical changes in the right inguinal / [employer] and region. Right inguinal region heterogen eous lesion measuring 6.7 x 3.0 by 9.6 cm with surrounding stranding. There is a rim enhancing collec tion within this lesion measuring 2.8 x 1.9 by 5.2 cm. There is right medial thigh skin thickening. Right thigh soft tissue stranding. Moderate bilateral sacroiliac degenerative joint disease. Severe lower lumbar degenerative disc disea se. IMPRESSION: 1. Right inguinal region heterogeneous lesion measuring 6.7 x 9.6 cm with hyperdense and fluid compon ent. This could represent hematoma/postoperative collection complicated by abscess. Rim enhancing co llection within this lesion measuring 5.2 x 1.9 cm may represent abscess. 2. Extensive medial right thigh soft tissue thickening. Right thigh soft tissue stranding. These fi ndings could represent cellulitis. 3. Postsurgical changes in the right [employer] region may represent sequela of [employer] endarterectomy. Correla te with surgical history. 4. Suprapubic Nobles catheter. Bladder wall thickening with hyperemia and surrounding stranding. Cor relate for cystitis and other etiologies. 5. Other findings as described.
[2024-09-29 18:00] VITALS: BP 194/78; PULSE 56; RESP 19; TEMP 97.6; O2SAT 97
[2024-09-29] MEDS: lisinopril 20mg tablet PO SCH (18:40)
--- NOTE | 2024-09-29 20:04 | PROGRESS NOTE- Residence ---
Progress Note - Resident Providers to CC Resident Creating Document: RODRIGUEZKAYE, CHRISTIE ~ Antibiotic Timeout Antibiotic Ordered?: Yes Subjective Patient was seen and examined at the bedside. His is at the bedside. He denies any fever. Dr. Lorenzo saw the patient and recommends ultrasound of the groin for suspected soft tissue abscess. Fluid rate increased to 150. mL/hour in 1 L bolus of NS given prior to CT pelvis with contrast. Recheck creatinine tomorrow and monitor for fluid overload. Objective Vital Signs Date Time Temp Pulse Resp B/P (MAP) Pulse Ox O2 Delivery O2 Flow Rate FiO2 09/29/24 18:40 56 09/29/24 10:00 98.4 16 163/73 (103) 98 Room Air 09/28/24 22:00 0.0 Result Diagram: 09/29/24 0449 09/29/24448 General: Well alert, well oriented, not confused, not agitated, not in acute distress, well cooperated during the physical. HEENT: Conjunctive are pink, sclerae clear, no icterus, pupil is equal in both sides, reactive to light, no ear discharge, no pharyngeal erythema or an edema. Neck: Supple, no JVD, no lymphadenopathy and thyromegaly. Chest: Equal air entry on both lungs, no additional sounds no rhonchi no wheezing at the moment. Cardiovascular: S1-S2 irregular rhythm and rate, no gallops, no rubs, no murmurs Abdomen: No visible peristalsis, Bowel sounds present on auscultation, soft, nontender, no guarding, no rigidity, presence of suprapubic catheter. Extremities: No obvious deformities, no pitting edema bilaterally, capillary refill intact, diminished pulse in the right lower extremity, presence of wound VAC in the right lower iliac fossa. Central Nervous System: No focal neurological deficits, no motor or sensory weakness in all 4 extremities, could move all 4 extremities, 2+ deep tendon reflexes, negative Babinski. Musculoskeletal: No joint swelling, deformities, inflammations, and no scoliosis and back tenderness Skin: Presence of bedsore at the level of sacral area. Assessment Assessment PCP: Dr. Dallas Stanton. Air Drier: Dr. Henriquez Urologist: Dr Hoang 84-year-old male patient with past medical history of AFib, prostate cancer, melanoma, hypertension, right femoral artery stenosis, dyslipidemia came to the hospital with chief complaint of subjective fever. The patient reports that he noticed this morning fever sensation and associated nausea. The patient also noticed some generalized weakness for approximately two days. Due to his fever sensation his took a thermometer and measured his temperature noticing 99.7-100 F degrees which prompted him to call to the ambulance and come to the hospital due to concerns of infection. The patient denies any diarrhea, abdominal pain, cough, shortness of breath, chest pain, palpitations. The patient mentioned that he got a right femoral artery stenosis, he underwent femoral endarterectomy by Dr. Lorenzo on August. The patient has a wound VAC. Plan Plan Sepsis, present on admission Urinary tract infection: History of prostate cancer: The patient has chronic Nobles catheter. Being followed by Dr. Hoang, case generally changes his catheter every month. Last change one week ago. Urinalysis is positive for UTI. Lactic acid 2.8-2.3. Follow-up urine and blood culture. The patient is currently on Zosyn and vancomycin. Culturelle [address] shows Right inguinal region heterogeneous lesion measuring 6.7 x 9.6 cm with hyperdense and fluid component. This could represent hematoma/postoperative collection complicated by abscess. Rim enhancing collection within this lesion measuring 5.2 x 1.9 cm may represent abscess. Extensive medial right thigh soft tissue thickening. Right thigh soft tissue stranding. These findings could represent cellulitis. Surgeon recommends ultrasound of the groin for further evaluation of soft tissue abscess. No definitive timeline indication on when the surgery could be done. NPO after midnight for possible surgery. Follow up with Dr. Lorenzo. Mass in the surgical site, not an operative complication Hematoma versus seroma versus abscess: The patient underwent right femoral endarterectomy on August. CT scan of the pelvis: Interval postsurgical changes related to the right groin. Regional superficial collection along the course of the right femoral vessels, measuring 7.7 x 2.7 x 10.0 cm, favor hematoma versus seroma, with abscess not excluded, limited in evaluation without intravenous contrast. Follow-up blood culture. Lactic acid 2.8-2.3. Dr. Lorenzo consulted. Awaiting recommendations. We will keep the patient NPO. Currently on Zosyn and vancomycin. Acute kidney injury on CKD likely secondary to renal tubular stasis: Creatinine Follow-up urine lytes. NS at 150 mL/hour. AFib rate controlled: We will continue to use home medication metoprolol nifedipine after med reconciliation. We will hold Eliquis for possible intervention. Hypertension: Metoprolol succinate 25 mg. 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 Currently healing. Wound care consulted Code status: Full code DVT prophylaxis: SCDs Analgesia/sedation: Morphine Line/tube: PIV GI prophylaxis: None Nutrition: NPO for possible surgery PT: Ordered Prognosis: Guarded Disposition: Pending vascular surgery recommendation and ultrasound of the groin. Continue care in ortho floor. Kaye Wade Internal Medicine Resident [facility] Date of Service: September 29, 2024 Billing Provider: ZACKARY GILMAN MD,KAYE WADE, RES September 29, 2024 20:04
[2024-09-29 22:00] VITALS: BP 184/75; PULSE 62; RESP 16; TEMP 98.1; O2SAT 97
[2024-09-30 04:58] LABS: BASOPHILS % (AUTO) 0.4 % (0-1); EOSINOPHILS # (AUTO) 0.3 X10'3 (0-0.9); HEMATOCRIT 31.1 % (42.0-52.0); HEMOGLOBIN 10.5 g/dl (14.0-17.9); LYMPHOCYTES # (AUTO) 0.7 X10'3 (1.1-4.8); LYMPHOCYTES % (AUTO) 9.6 % (21-51); MEAN CORPUSCULAR HEMOGLOBIN 30.7 PG (27.0-31.0); MEAN CORPUSCULAR HGB CONC 33.7 g/dL (33.0-36.5); MEAN CORPUSCULAR VOLUME 91.2 FL (78-98); MEAN PLATELET VOLUME 10.2 FL (7.4-10.4); MONOCYTES # (AUTO) 0.7 X10'3 (0-0.9); MONOCYTES % (AUTO) 8.5 % (2-12); NEUTROPHILS # (AUTO) 5.9 X10'3 (1.8-7.7); NEUTROPHILS % (AUTO) 77.5 % (42-75); PLATELET COUNT 116 X10'3 (140-440); RED BLOOD COUNT 3.41 X10'6 (4.70-6.10); RED CELL DISTRIBUTION WIDTH 12.7 % (11.5-14.5); WHITE BLOOD COUNT 7.7 X10'3 (4.5-11.0)
[2024-09-30 05:19] LABS: ALANINE AMINOTRANSFERASE 25 U/L (12-78); ALBUMIN/GLOBULIN RATIO 0.6 (1.1-1.5); ALKALINE PHOSPHATASE 61 IU/L (46-116); ANION GAP 10 (8-16); ASPARTATE AMINO TRANSFERASE 22 U/L (10-37); BILIRUBIN,TOTAL 0.4 MG/DL (0.1-1.0); BLOOD UREA NITROGEN 15 MG/DL (7-18); BUN/CREATININE RATIO 11.9 (10.0-20.0); CALCIUM 7.7 MG/DL (8.5-10.1); CHLORIDE 111 MMOL/L (99-107); CREATININE 1.26 MG/DL (0.60-1.10); GLUCOSE 85 MG/DL (70-104); MAGNESIUM 1.7 MG/DL (1.5-2.4); POTASSIUM 3.6 MMOL/L (3.5-5.1); SODIUM 144 MMOL/L (135-145); TOTAL CARBON DIOXIDE 22.9 MMOL/L (24-32); TOTAL PROTEIN 5.3 G/DL (6.4-8.2); eCRCL 46 ML/MIN; eGFR 54 ML/MIN
[2024-09-30 06:00] VITALS: BP 195/69; PULSE 55; RESP 16; TEMP 97.9; O2SAT 97
[2024-09-30 10:00] VITALS: BP 157/64; PULSE 64; RESP 18; TEMP 97.4; O2SAT 96
[2024-09-30] MEDS: lactose-reduced food (Ensure Enlive) - 237ml bottle PO SCH (13:52)
--- NOTE | 2024-09-30 14:36 | PROGRESS NOTE- Residence ---
Progress Note - Resident Providers to CC Resident Creating Document: ROXANA AGUILLONTIFFANIEVA ONOFRE CC: ZACKARY GILMAN MD ~ Antibiotic Timeout Antibiotic Ordered?: Yes Subjective Patient was seen and examined at the bedside. He states he feels well, denies groin pain, fever, chills, shortness of breath, chest pain or any other concerning symptoms. His blood pressure was significantly elevated today. Objective Vital Signs Date Time Temp Pulse Resp B/P (MAP) Pulse Ox O2 Delivery O2 Flow Rate FiO2 09/30/24 10:00 97.4 64 18 157/64 (95) 96 Room Air 09/28/24 22:00 0.0 Result Diagram: 09/30/2442009/30/24420 General: awake, alert oriented to place, time, and person HEENT: No pallor present, no icterus, moist mucous membranes Neck: No masses and tenderness Resp: Unlabored. Lungs clear to auscultation bilaterally. Heart: Regular Rate and rhythm, normal S1 and S2 without murmur, rub or gallop Abdomen: Soft and non tender no organomegaly, no guarding and rigidity, bowel sounds present Neuro: No weakness in the upper and lower limb muscles, power of the muscles 5/5 bilateral upper and lower muscles, knee reflex present bilaterally. Cranial nerves intact Extremities: He has a drain in his right groin. No purulence, erythema or significant tenderness to palpation. No cyanosis,clubbing or edema Skin: Warm and Dry. As above Assessment Assessment 84-year-old male patient with past medical history of AFib, prostate cancer, melanoma, hypertension, right femoral artery stenosis, dyslipidemia came to the hospital with chief complaint of subjective fever. Currently admitted for evaluation and treatment of possible right groin abscess. Being followed by Dr. Lorenzo PCP: Dr. Dallas Stanton. Diet Supervisor: Dr. Henriquez Urologist: Dr Hoang Plan Plan Sepsis, present on admission, resolved Catheter associated urinary tract infection, POA Mass in the surgical site, possible hematoma versus abscess History of prostate cancer The patient has chronic suprapubic Nobles catheter. Being followed by Dr. Hoang, case generally changes his catheter every month. Last change one week ago. Urinalysis is positive for UTI Urine culture grew Pseudomonas and Enterococcus faecalis Blood cultures are negative Pelvis CT shows Right inguinal region heterogeneous lesion measuring 6.7 x 9.6 cm with hyperdense and fluid component. Completed Zosyn, 3 days and vancomycin, 2 days, will DC Will start ciprofloxacin per sensitivities Continue Culturelle [address] [address]mu [address].i.d. Continue wound care Continue recommendations per Dr. Lorenzo Acute kidney injury on CKD likely secondary to renal tubular stasis: Creatinine back to baseline Will decrease IV fluids to 75 cc/hour AFib, rate controlled Continue metoprolol Eliquis being held in view of possible surgical intervention Hypertension Hypertensive urgency, resolved Continue Metoprolol succinate 25 mg, lisinopril 20 mg, nifedipine 60 mg Ulcer in the sacrum Continue wound care Code status: Full code DVT prophylaxis: SCDs Analgesia/sedation: Morphine Line/tube: PIV GI prophylaxis: None PT: Ordered Prognosis: Guarded Disposition: Pending vascular surgery recommendation and ultrasound of the groin. Continue care in ortho floor. Continue recommendations per Dr. Bj Aguillon MD Internal Medicine Resident PGY-1 Date of Service: September 30, 2024 Billing Provider: ZACKARY GILMAN MD, LEONARDO LUIS September 30, 2024 14:36
[2024-09-30] MEDS: ciprofloxacin lact 400MG/200ML 200 ML IV SCH (15:32)
[2024-09-30 18:00] VITALS: BP 191/71; PULSE 52; RESP 16; TEMP 98.7; O2SAT 97
--- NOTE | 2024-09-30 19:30 | PROGRESS NOTE ---
Progress Note ID Providers to CC ~ Progress Note Progress Note: ct noted-will arrange for outpatient aspiration-home in am GYPSY MOYA MD September 30, 2024 19:30
[2024-09-30 20:00] VITALS: RESP 16; O2SAT 97
[2024-09-30 22:00] VITALS: BP 100/76; PULSE 67; RESP 15; TEMP 98; O2SAT 96
[2024-09-30 22:55] VITALS: BP 196/64
[2024-09-30] MEDS: NIFEdipine XL 30mg tablet PO ONE (23:03)
[2024-10-01] MEDS ORDERED: VANCOMYCIN LEVEL IV ONE (00:30)
[2024-10-01 04:52] LABS: BASOPHILS % (AUTO) 0.5 % (0-1); EOSINOPHILS # (AUTO) 0.3 X10'3 (0-0.9); EOSINOPHILS % (AUTO) 3.5 % (0-6); HEMATOCRIT 32.7 % (42.0-52.0); HEMOGLOBIN 11.3 g/dl (14.0-17.9); LYMPHOCYTES # (AUTO) 0.8 X10'3 (1.1-4.8); LYMPHOCYTES % (AUTO) 8.7 % (21-51); MEAN CORPUSCULAR HEMOGLOBIN 31.1 PG (27.0-31.0); MEAN CORPUSCULAR HGB CONC 34.4 g/dL (33.0-36.5); MEAN CORPUSCULAR VOLUME 90.2 FL (78-98); MONOCYTES # (AUTO) 0.8 X10'3 (0-0.9); MONOCYTES % (AUTO) 8.8 % (2-12); NEUTROPHILS # (AUTO) 7.3 X10'3 (1.8-7.7); NEUTROPHILS % (AUTO) 78.5 % (42-75); PLATELET COUNT 140 X10'3 (140-440); RED BLOOD COUNT 3.63 X10'6 (4.70-6.10); RED CELL DISTRIBUTION WIDTH 12.7 % (11.5-14.5); WHITE BLOOD COUNT 9.3 X10'3 (4.5-11.0)
[2024-10-01 05:13] LABS: ALANINE AMINOTRANSFERASE 26 U/L (12-78); ALBUMIN 1.9 G/DL (3.4-5.0); ALBUMIN/GLOBULIN RATIO 0.6 (1.1-1.5); ALKALINE PHOSPHATASE 63 IU/L (46-116); ANION GAP 14 (8-16); ASPARTATE AMINO TRANSFERASE 21 U/L (10-37); BILIRUBIN,TOTAL 0.5 MG/DL (0.1-1.0); BLOOD UREA NITROGEN 9 MG/DL (7-18); BUN/CREATININE RATIO 8.1 (10.0-20.0); CALCIUM 7.7 MG/DL (8.5-10.1); CHLORIDE 109 MMOL/L (99-107); CREATININE 1.11 MG/DL (0.60-1.10); GLUCOSE 93 MG/DL (70-104); MAGNESIUM 1.7 MG/DL (1.5-2.4); POTASSIUM 3.3 MMOL/L (3.5-5.1); SODIUM 146 MMOL/L (135-145); TOTAL CARBON DIOXIDE 22.8 MMOL/L (24-32); TOTAL PROTEIN 5.3 G/DL (6.4-8.2); eCRCL 52 ML/MIN; eGFR 63 ML/MIN
[2024-10-01 06:00] VITALS: BP 173/78; PULSE 52; RESP 16; TEMP 98.1; O2SAT 96
[2024-10-01] MEDS: NIFEdipine XL 30mg tablet PO SCH (07:40)
[2024-10-01 07:48] VITALS: BP_SYST 172; PULSE 65
[2024-10-01] MEDS: lisinopril 20mg tablet PO SCH (07:48)
[2024-10-01] MEDS ORDERED: lisinopril 20mg tablet PO SCH (08:00)
[2024-10-01] MEDS ORDERED: LISI20TA28 PO (12:29)
[2024-10-01] MEDS ORDERED: CIPR-20 PO (12:29)
[2024-10-01] MEDS ORDERED: LACT1CAP26 PO (12:29)
--- NOTE | 2024-10-01 17:58 | DISCHARGE SUMMARY-Residence ---
Discharge Summary Providers to CC Resident Creating Document: SCHMIDT PALTIFFANIEVA ONOFRE CC: ZACKARY GILMAN MD ~ Discharge Summary Admission Diagnosis: WOUND RE-CHECK Hospital Course DATE OF ADMISSION: 09/27/2024 DATE OF DISCHARGE: 10/01/2024 Discharge Diagnosis\Comment: Sepsis, present on admission, resolved Catheter associated urinary tract infection, POA Surgical site hematoma History of prostate cancer Acute kidney injury on CKD likely secondary to renal tubular stasis, resolved AFib, rate controlled Hypertension Hypertensive urgency, resolved Ulcer in the sacrum Operations\Procedures: None Consultants: Dr Lorenzo (surgery) Complications: None Condition on DC: Stable New Medications: Ciprofloxacin/Ciprofloxa Hcl (Ciprofloxacin Er 500 Mg Tablet) 500 Mg Tbmp.24hr 1 TAB PO Q12H for 5 Days, #10 TAB Lactobacillus Rhamnosus (Culturelle) 10 Billion Cell Capsule 67094 MMU PO BID for 30 Days, #60 CAP Lisinopril (Lisinopril) 20 Mg Tablet 40 MG PO DAILY for 30 Days, #60 TAB Continued Medications: Apixaban (Eliquis) 5 Mg Tablet 1 TAB PO BID Aspirin (Aspirin EC) 81 Mg Tablet.dr 1 TAB PO DAILY for 30 Days, #30 TAB Cholecalciferol (Vitamin D3) (Vitamin D3) 125 Mcg (5000 Unit) Tab.rapdis 1 TAB PO DAILY Doxylamine Succinate (Unisom Sleep Aid) 25 Mg Tablet 25 MG PO HS Metformin HCl (Metformin HCl) 500 Mg Tablet 1 TAB PO BID Metoprolol Succinate (Metoprolol Succinate) 25 Mg Tab.sr.24h 1 TAB PO BID Nifedipine (Afeditab Cr) 60 Mg Tablet.sa 1 TAB PO DAILY Simvastatin* (Zocor*) 20 Mg Tablet 1 TAB PO DAILY Tadalafil (Cialis) 20 Mg Tablet 1 TAB PO PRN Tramadol Hcl (Tramadol Hcl) 50 Mg Tablet 1 TAB PO Q4H PRN for pain Discontinued Medications: Cefdinir (Cefdinir) 300 Mg Capsule 1 CAP PO Q12H for 7 Days, #14 CAP 0 Refills Lisinopril (Lisinopril) 20 Mg Tablet 1 TAB PO DAILY Discharge Summary: Patient was admitted with the following HPI: 84-year-old male patient with past medical history of AFib, prostate cancer, melanoma, hypertension, right femoral artery stenosis, dyslipidemia came to the hospital with chief complaint of subjective fever. The patient reports that he noticed this morning fever sensation and associated nausea. The patient also noticed some generalized weakness for approximately two days. Due to his fever sensation his took a thermometer and measured his temperature noticing 99.7-100 F degrees which prompted him to call to the ambulance and come to the hospital due to concerns of infection. The patient denies any diarrhea, abdominal pain, cough, shortness of breath, chest pain, palpitations. The patient mentioned that he got a right femoral artery stenosis, he underwent femoral endarterectomy by Dr. Lorenzo on August. The patient has a wound VAC. Hospital course: Patient was admitted with diagnosis of sepsis, catheter associated UTI, surgical site mass, and PHYLLIS on CKD. Patient was started on broad-spectrum antibiotics Zosyn and vancomycin, in addition to aggressive IV fluid resuscitation. On day 2, Dr Lorenzo was consulted who recommended CT with IV contrast of surgical site, which reported a superficial collection on the right femoral vessels. It was recommended the patient continues on medical management along with wound care. After urine cultures returned, antibiotics were narrowed to ciprofloxacin. Today, patient reported improvement of surgical site and resolution of subjective fevers. Patient will be discharged home on oral ciprofloxacin. He will follow up for outpatient drainage of fluid collection by Dr. Lorenzo, as well as follow up with wound care. Patient had an overall satisfactory hospital course where he remained hemodynamically stable. Laboratory Tests Test 09/30/24 04:21 10/01/24 04:34 White Blood Count 7.7 X10'3 9.3 X10'3 Red Blood Count 3.41 X10'6 3.63 X10'6 Hemoglobin 10.5 g/dl 11.3 g/dl Hematocrit 31.1 % 32.7 % Mean Corpuscular Volume 91.2 FL 90.2 FL Mean Corpuscular Hemoglobin 30.7 PG 31.1 PG Mean Corpuscular Hemoglobin Concent 33.7 g/dL 34.4 g/dL Red Cell Distribution Width 12.7 % 12.7 % Platelet Count 116 X10'3 140 X10'3 Mean Platelet Volume 10.2 FL 10.0 FL Neutrophils (%) (Auto) 77.5 % 78.5 % Lymphocytes (%) (Auto) 9.6 % 8.7 % Monocytes (%) (Auto) 8.5 % 8.8 % Eosinophils (%) (Auto) 4.0 % 3.5 % Basophils (%) (Auto) 0.4 % 0.5 % Neutrophils # (Auto) 5.9 X10'3 7.3 X10'3 Lymphocytes # (Auto) 0.7 X10'3 0.8 X10'3 Monocytes # (Auto) 0.7 X10'3 0.8 X10'3 Eosinophils # (Auto) 0.3 X10'3 0.3 X10'3 Basophils # (Auto) 0.0 X10'3 0.0 X10'3 CBC Comment Sodium Level 144 MMOL/L 146 MMOL/L Potassium Level 3.6 MMOL/L 3.3 MMOL/L Chloride Level 111 MMOL/L 109 MMOL/L Carbon Dioxide Level 22.9 MMOL/L 22.8 MMOL/L Anion Gap 10 14 Blood Urea Nitrogen 15 MG/DL 9 MG/DL Creatinine 1.26 MG/DL 1.11 MG/DL Estimated GFR/1.73 m2 54 ML/MIN 63 ML/MIN BUN/Creatinine Ratio 11.9 8.1 Glucose Level 85 MG/DL 93 MG/DL Calcium Level 7.7 MG/DL 7.7 MG/DL Magnesium Level 1.7 MG/DL 1.7 MG/DL Total Bilirubin 0.4 MG/DL 0.5 MG/DL Aspartate Amino Transf (AST/SGOT) 22 U/L 21 U/L Alanine Aminotransferase (ALT/SGPT) 25 U/L 26 U/L Alkaline Phosphatase 61 IU/L 63 IU/L Total Protein 5.3 G/DL 5.3 G/DL Albumin 2.0 G/DL 1.9 G/DL Globulin 3.3 G/DL 3.4 G/DL Albumin/Globulin Ratio 0.6 0.6 Chemistry Comments Imaging: CT pelvis on 09/29/2024: 1. Right inguinal region heterogeneous lesion measuring 6.7 x 9.6 cm with hyperdense and fluid component. This could represent hematoma/postoperative collection complicated by abscess. Rim enhancing collection within this lesion measuring 5.2 x 1.9 cm may represent abscess. 2. Extensive medial right thigh soft tissue thickening. Right thigh soft tissue stranding. These findings could represent cellulitis. 3. Postsurgical changes in the right PUBLIC SERVICES ASSISTANT region may represent sequela of PUBLIC SERVICES ASSISTANT endarterectomy. Correlate with surgical history. 4. Suprapubic Nobles catheter. Bladder wall thickening with hyperemia and surrounding stranding. Correlate for cystitis and other etiologies. Lower extremity CT on 09/27/2024: 1. Distal femur intact. 2. Right total knee arthroplasty in place with beam hardening artifact obscuring detail. Pelvis CT on 09/27/2024: 1. Interval postsurgical changes related to the right groin. Regional superficial collection along the course of the right femoral vessels, measuring 7.7 x 2.7 x 10.0 cm, favor hematoma versus seroma, with abscess not excluded, limited in evaluation without intravenous contrast. Discharge physical exam: Vital Signs Date Time Temp Pulse Resp B/P (MAP) Pulse Ox O2 Delivery O2 Flow Rate FiO2 10/01/24 08:00 Room Air 10/01/24 07:48 65 10/01/24 06:00 98.1 16 173/78 (109) 96 09/28/24 22:00 0.0 General: awake, alert oriented to place, time, and person HEENT: No pallor present, no icterus, moist mucous membranes Neck: No masses and tenderness Resp: Unlabored. Lungs clear to auscultation bilaterally. Heart: Regular Rate and rhythm, normal S1 and S2 without murmur, rub or gallop Abdomen: Soft and non tender no organomegaly, no guarding and rigidity, bowel sounds present Neuro: No weakness in the upper and lower limb muscles, power of the muscles 5 /5 bilateral upper and lower muscles, knee reflex present bilaterally. Cranial nerves intact Extremities: Wound VAC present in right groin. No purulence, erythema or significant tenderness to palpation. No cyanosis,clubbing or edema Skin: Warm and Dry. As above Patient will be discharged to the following recommendations: Follow up with Dr Lorenzo in his office Saturday10/05/24 Call office for appt time [phone] Patient has a 1215 outpatient wound care appointment on saturday10/07/24 with [facility] outpatient wound care. Continue Ciprofloxacin for five more days Follow up with your PCP within one week Please return to the ED if any concerning symptoms *Problems/Diagnosis: (1) Catheter-associated urinary tract infection Status: Acute (2) Drainage from surgical wound Status: Acute Total Time Spent on D/C: > 30 Minutes Date of Service: October 01, 2024 Billing Provider: ZACKARY GILMAN MD, LEONARDO LUIS October 01, 2024 17:45
[2024-10-02] MEDS ORDERED: CIPR-202 PO (14:53)
== END 2024-10-01 13:59 | disposition home health service (06) | DRG 698 ==
LOC: ER 13:26 → ED HOLD 19:48 → ORTHO 4S 23:00
PROVIDERS: ADMIT Internal Medicine; ATTEND Family Medicine
PROC: BW2G1ZZ Computerized Tomography (CT Scan) of Pelvic Region using Low Osmolar Contrast (ICD-10-PCS; principal; 2024-09-29)
DX: T83.518A Infection and inflammatory reaction due to other urinary catheter, initial encounter (principal); A41.9 Sepsis, unspecified organism; N17.0 Acute kidney failure with tubular necrosis; N39.0 Urinary tract infection, site not specified; L76.32 Postprocedural hematoma of skin and subcutaneous tissue following other procedure; N18.9 Chronic kidney disease, unspecified; I12.9 Hypertensive chronic kidney disease with stage 1 through stage 4 chronic kidney disease, or unspecified chronic kidney disease; I16.0 Hypertensive urgency; Y83.8 Other surgical procedures as the cause of abnormal reaction of the patient, or of later complication, without mention of misadventure at the time of the procedure; Z96.651 Presence of right artificial knee joint; Y92.89 Other specified places as the place of occurrence of the external cause; Z79.01 Long term (current) use of anticoagulants; Z79.82 Long term (current) use of aspirin; Z79.899 Other long term (current) drug therapy; Z85.46 Personal history of malignant neoplasm of prostate
CPT/HCPCS: 36415; 71045; 72192; 72193; 73700; 80048; 80053; 81001; 82948; 83036; 83605; 83735; 83930; 84145; 85025; 85651; 86140; 87040; 87077; 87081; 87088; 87186; 93005; 96365; 97161; 97530; 99285; A4649; A6196; A6212; A6258; A6449; G0378; J0744; J1644; J2543; J3370; J3372; J7030; J7040; J7120; Q9967

== ENCOUNTER 2024-11-21 20:38 | Emergency (ER) | payer MEDICARE, BC ==
[~2024-11-21] VITALS: Ht 182.9 cm; Wt 79.5 kg
[~2024-11-21 20:38] MED LIST changes: -ASPI81TA52 PO; -CEFD300C3 PO; +LACT1CAP26 PO; +METF-1203 PO; +TRAM50TA2 PO
[2024-11-21 20:41] VITALS: TEMP 98.6
[2024-11-21 21:39] LABS: BASOPHILS # (AUTO) 0.1 X10'3 (0-0.2); BASOPHILS % (AUTO) 0.8 % (0-1); EOSINOPHILS # (AUTO) 0.4 X10'3 (0-0.9); EOSINOPHILS % (AUTO) 4.1 % (0-6); HEMATOCRIT 41.7 % (42.0-52.0); HEMOGLOBIN 13.9 g/dl (14.0-17.9); LYMPHOCYTES # (AUTO) 1.3 X10'3 (1.1-4.8); LYMPHOCYTES % (AUTO) 14.4 % (21-51); MEAN CORPUSCULAR HEMOGLOBIN 30.8 PG (27.0-31.0); MEAN CORPUSCULAR HGB CONC 33.3 g/dL (33.0-36.5); MEAN CORPUSCULAR VOLUME 92.4 FL (78-98); MONOCYTES # (AUTO) 0.6 X10'3 (0-0.9); NEUTROPHILS # (AUTO) 6.4 X10'3 (1.8-7.7); NEUTROPHILS % (AUTO) 73.7 % (42-75); PLATELET COUNT 188 X10'3 (140-440); RED BLOOD COUNT 4.51 X10'6 (4.70-6.10); WHITE BLOOD COUNT 8.7 X10'3 (4.5-11.0)
--- NOTE | 2024-11-21 21:43 | RADIOLOGY REPORT ---
Procedure: CT CT HEAD [facility] History: FALL Comparison: None Dose: CTDI: 58.87 mGy DLP: 1051.74 mGycm Technique: Multiplanar images obtained through the brain without intravenous contrast. Findings: Xptj-nb-avjbfovi diffuse brain Atrophy . Moderate to severe chronic small-vessel ischemic changes. Bilateral basal ganglia and bilateral cerebellar calcifications which may be seen with a fahrs diseas e. No hemorrhages, masses, mass effect, midline shift, herniation or cytotoxic edema following a large v ascular territory. No intra-axial or extra-axial fluid collections. No evidence of hydrocephalus. The basal cisterns are patent. The pituitary gland, sella and parasellar regions are unremarkable. The cerebellar tonsils are in nor mal position. The cerebellum is unremarkable. Bilateral lens replacement. Otherwise, orbits and globes are unremarkable. Partially imaged mucous r etention cysts within the right maxillary sinus. Otherwise, the paranasal sinuses and mastoids are c lear. There are no worrisome calvarial lesions. Moderate right parietal scalp hematoma. Impression: No evidence of acute intracranial abnormality. Moderate right parietal scalp hematoma.
--- NOTE | 2024-11-21 21:57 | RADIOLOGY REPORT ---
CLINICAL INDICATION: FALL TECHNIQUE: 3 radiographic views of the right elbow were obtained. Comparison: None FINDINGS/IMPRESSION: There is no evidence of acute fracture or dislocation. The visualized joint space is well maintained. The alignment is anatomical. There is no radiopaque foreign body.
[2024-11-21 22:01] LABS: ALANINE AMINOTRANSFERASE 23 U/L (12-78); ALBUMIN 3.3 G/DL (3.4-5.0); ALBUMIN/GLOBULIN RATIO 0.8 (1.1-1.5); ALKALINE PHOSPHATASE 76 IU/L (46-116); ANION GAP 18 (8-16); ASPARTATE AMINO TRANSFERASE 23 U/L (10-37); BILIRUBIN,TOTAL 0.5 MG/DL (0.1-1.0); BLOOD UREA NITROGEN 34 MG/DL (7-18); BUN/CREATININE RATIO 21.7 (10.0-20.0); CALCIUM 9.4 MG/DL (8.5-10.1); CHLORIDE 104 MMOL/L (99-107); CREATININE 1.57 MG/DL (0.60-1.10); GLUCOSE 127 MG/DL (70-104); POTASSIUM 3.8 MMOL/L (3.5-5.1); SODIUM 140 MMOL/L (135-145); TOTAL CARBON DIOXIDE 18.1 MMOL/L (24-32); TOTAL PROTEIN 7.4 G/DL (6.4-8.2); eCRCL 37 ML/MIN; eGFR 42 ML/MIN
--- NOTE | 2024-11-22 00:27 | Physician Documentation ---
History of Present Illness ~ Chief Complaint: Mechanical Fall Stated Complaint: FALL ON THINNERS Time Seen by MD: 02:12 Primary Medical Doctor: Dr. Dallas Stanton. Mode of Arrival: POV, Ambulatory HPI This is an 84-year-old male who presents after a ground level trip and fall striking his head and right elbow. Patient reports no loss of consciousness though reports he is on blood thinners. THIS PATIENT WAS SEEN IN BED 10 This patient is an 84 y/o male who presents to ED for head injury after a mechanical fall. Patient states that this evening he was changing a record when he slipped and fell, landing on his right side. He did hit his head and has a large gash to the right side of his head. He denies any LOC. Patient reports he is on blood thinners for afib which he takes BID morning and night. Patient denies any other associated symptoms at this time. Patient denies any other alleviating or exacerbating factors. Tetanus within 5 Years?: No Medication Reconciliation Allergies: Coded Allergies: No Known Allergies (Unverified , 11/21/24) Scheduled Apixaban (Eliquis), 1 TAB PO BID, (Reported) Cholecalciferol (Vitamin D3) (Vitamin D3), 1 TAB PO DAILY, (Reported) Doxylamine Succinate (Unisom Sleep Aid), 25 MG PO HS, (Reported) Lactobacillus Rhamnosus (Culturelle), 10,000 MMU PO BID Lisinopril (Lisinopril), 40 MG PO DAILY Metformin HCl (Metformin HCl), 1 TAB PO BID, (Reported) Metoprolol Succinate (Metoprolol Succinate), 1 TAB PO BID, (Reported) Nifedipine (Afeditab Cr), 1 TAB PO DAILY, (Reported) Simvastatin* (Zocor*), 1 TAB PO DAILY, (Reported) Tadalafil (Cialis), 1 TAB PO PRN, (Reported) Scheduled PRN Tramadol Hcl (Tramadol Hcl), 1 TAB PO Q4H PRN for pain, (Reported) Past Medical History Past Medical History: Hypertension, Melanoma Past Surgical History: cancer surgery, orthopedic surgeries, other Patient History: FH: heart disease MOTHER, , Age: 68 FH: lung cancer FATHER (liver and lung cancer), , Age: 72 Smoking Status: Never smoker Alcohol Use: Sober Drug Use: none Lives with: Spouse Lives In: Home Occupation: retired Review of Systems All Other Systems at this time: Reviewed and Negative Physical Exam Vital Signs: Temperature: 98.6, Heart Rate: 59, Respiratory Rate: 16, BP: 185/86, Pulse Oximetry: 99, Weight: 79.550 Physical Exam VITALS: Reviewed and as above. GENERAL: Alert, nontoxic appearing, no apparent distress. HEENT: PERRLA, EOMI RESPIRATORY: No increased work of breathing, no respiratory distress, speaking in full clear sentences CHEST: CV: BACK: GI: MUSCULOSKELETAL: SKIN: NEURO: PSYCH: EXAM BY EDMD DR HOUSE General: The patient is well developed, well nourished, nontoxic appearing and is in no acute distress. Skin: Bandana, warm and dry with no rashes. HEENT: Contusion to right head which is slightly oozing blood. Eyes - pupils equal, round, reactive to light and accommodation. Extraocular movements were intact. Conjunctivae were nonicteric. Ears - bilateral tympanic membranes were normal. The mouth and oropharynx were clear with moist mucous membranes. There were no pharyngeal exudates or erythema. Neck: Supple and nontender. There was no jugular venous distention, lymphadenopathy, thyromegaly or masses. Chest: Clear to auscultation bilaterally without wheezes, rales or rhonchi. No accessory muscle use. No dullness to percussion. Heart: Rate regular and rhythmic. S1, S2. No murmurs. Palpation of the chest wall was normal. No rubs or thrills. Abdomen: Soft, nontender and nondistended. Positive bowel sounds. No guarding or rebound. No hepatosplenomegaly or palpable masses. Extremities: 1+ pitting edema to bilateral lower extremities. Slight swelling to right leg when compared to left. Contusion to right elbow, full ROM. No cyanosis or clubbing. The patient moves all extremities. Pulses were equal and symmetric. Neurologic: Cranial nerves II-XII were intact. Sensation was intact to light touch throughout. Motor strength was 5/5 in all four extremities. Deep tendon reflexes were intact in both upper and lower extremities. Psychologic: The patient was oriented to person, place and time. The patient demonstrated appropriate judgement and insight. Progress Results/Orders Reviewed/noted all lab results: Yes Results/Orders Orders - [facility] MD Urinalysis, Cult If Indicated (11/22/24 02:28) Completed Orders - [facility] MD Hydrocodone/Apap 5/325mg Tab ([place] 5/32 (11/22/24 01:20) Medications Received in ER Medications (Trade) Dose Ordered Sig/Saeid Route PRN Reason Start Time Stop Time Status Last Admin Dose Admin ([place]iff 5/325mg tablet) 1 tab ONCE ONCE PO 11/22/24 01:20 11/22/24 01:23 DC 11/22/24 01:39 1 TAB Vital Signs 11/21/24 11/21/24 11/21/24 11/22/24 20:41 23:14 23:14 01:11 Temp 98.6 Pulse 88 59 80 Resp 18 16 16 16 B/P (MAP) 144/80 185/86 (119) 167/98 (121) Pulse Ox 96 99 99 11/22/24 11/22/24 01:39 02:50 Pulse 72 Resp 16 16 B/P (MAP) 174/72 Pulse Ox 98 Laboratory Tests Test 11/21/24 21:09 White Blood Count 8.7 Red Blood Count 4.51 L Hemoglobin 13.9 L Hematocrit 41.7 L Mean Corpuscular Volume 92.4 Mean Corpuscular Hemoglobin 30.8 Mean Corpuscular Hemoglobin Concent 33.3 Red Cell Distribution Width 15.0 H Platelet Count 188 Mean Platelet Volume 11.0 H Neutrophils (%) (Auto) 73.7 Lymphocytes (%) (Auto) 14.4 L Monocytes (%) (Auto) 7.0 Eosinophils (%) (Auto) 4.1 Basophils (%) (Auto) 0.8 Neutrophils # (Auto) 6.4 Lymphocytes # (Auto) 1.3 Monocytes # (Auto) 0.6 Eosinophils # (Auto) 0.4 Basophils # (Auto) 0.1 CBC Comment Sodium Level 140 Potassium Level 3.8 Chloride Level 104 Carbon Dioxide Level 18.1 L Anion Gap 18 H Blood Urea Nitrogen 34 H Creatinine 1.57 H Estimated GFR/1.73 m2 42 BUN/Creatinine Ratio 21.7 H Glucose Level 127 H Calcium Level 9.4 Total Bilirubin 0.5 Aspartate Amino Transf (AST/SGOT) 23 Alanine Aminotransferase (ALT/SGPT) 23 Alkaline Phosphatase 76 Total Protein 7.4 Albumin 3.3 L Globulin 4.1 Albumin/Globulin Ratio 0.8 L Chemistry Comments EKG/XRAY/CT/US/VASC/MRI Bone/Soft Tissue X-Ray (Ext.) : Interpreted By: radiologist, both Additional Comment [address] [address] DIAGNOSTIC RADIOLOGY Patient: JONAS RUDOLPH Medical Record: [id number] [facility] : 1940, Age: 84 Sex: Male Location: ER Patient Status: [facility] ER Service Date/Time: 11/21/242042 Ordering Physician: MELITON OSULLIVAN Exam: ELBOW, COMPLETE (3VW MIN) CLINICAL INDICATION: FALL TECHNIQUE: 3 radiographic views of the right elbow were obtained. Comparison: None FINDINGS/IMPRESSION: There is no evidence of acute fracture or dislocation. The visualized joint space is well maintained. The alignment is anatomical. There is no radiopaque foreign body. Electronically Signed by:PETRA VILLALOBOS DO Date & Time: 11/21/242153 Dictated by: PETRA VILLALOBOS DO Dictation date and time: 11/21/242153 Primary Care Provider: NO PRIMARY CARE PROVIDER cc: MELITON OSULLIVAN ~ IMAGES REVIEWED BY EDMD DR. HOUSE WHO AGREES WITH ABOVE FINDINGS CT : Interpreted By: radiologist, both CT: head With Contrast?: No Impression [address] [address] CAT SCAN Patient: JONAS RUDOLPH Medical Record: [id number] [facility] : 1940, Age: 84 Sex: Male Location: ER Patient Status: REG ER Service Date/Time: 11/21/242042 Ordering Physician: MELITON OSULLIVAN Exam: CT HEAD Procedure: CT CT HEAD [facility] History: FALL Comparison: None Dose: CTDI: 58.87 mGy DLP: 1051.74 mGycm Technique: Multiplanar images obtained through the brain without intravenous contrast. Findings: Lrev-dm-itzalaqu diffuse brain Atrophy . Moderate to severe chronic small- vessel ischemic changes. Bilateral basal ganglia and bilateral cerebellar calcifications which may be seen with a fahrs disease. No hemorrhages, masses, mass effect, midline shift, herniation or cytotoxic edema following a large vascular territory. No intra-axial or extra-axial fluid collections. No evidence of hydrocephalus. The basal cisterns are patent. The pituitary gland, sella and parasellar regions are unremarkable. The cerebellar tonsils are in normal position. The cerebellum is unremarkable. Bilateral lens replacement. Otherwise, orbits and globes are unremarkable. Partially imaged mucous retention cysts within the right maxillary sinus. Otherwise, the paranasal sinuses and mastoids are clear. There are no worrisome calvarial lesions. Moderate right parietal scalp hematoma. Impression: No evidence of acute intracranial abnormality. Moderate right parietal scalp hematoma. Electronically Signed by:PETRA VILLALOBOS DO Date & Time: 11/21/242139 Dictated by: PETRA VILLALOBOS DO Dictation date and time: 11/21/242139 Primary Care Provider: NO PRIMARY CARE PROVIDER cc: MELITON OSULLIVAN ~ IMAGES REVIEWED BY EDMD DR. HOUSE WHO AGREES WITH ABOVE FINDINGS Medical Decision Making Findings MSE performed in triage and patient returned to ED lobby by nursing staff to await available ED room, imaging initiated Departure Time of Disposition: 02:39 Disposition: 01 HOME / SELF CARE / HOMELESS Impression: Primary Impression: Fall Qualified Codes: W19.XXXA - Unspecified fall, initial encounter Additional Impressions: Scalp hematoma Qualified Codes: S00.03XA - Contusion of scalp, initial encounter Dehydration Acute on chronic renal insufficiency Condition: Stable Discharge Instructions: Fall Prevention in the Home, Adult, Uxcc-ci-Yfiv Additional Instructions: Hold blood thinners for 48 hours. Return to ER for re-evaluation sooner if patient starts to seem confused or there are any other concerns. Referrals: NO PRIMARY CARE PROVIDER (PCP) Education Educated: Patient, Family Educated regarding: diagnosis, treatment, need for follow up Signature Scribe Signature: Scribed for [facility] MD by Terra Jay . 11/22/24 05:39 MELITON OSULLIVAN Nov 22, 2024 00:27 [facility] MD Nov 22, 2024 02:40
[2024-11-22] MEDS: HYDROcodone/acetaminophen 5mg/325mg tablet PO ONE (01:39)
[2024-11-22 02:50] VITALS: BP 174/72; PULSE 72; RESP 16; O2SAT 98
--- NOTE | 2024-11-23 04:44 | ELECTROCARDIOGRAPH REPORT ---
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 Pedro House Measurements Intervals [place] Rate: 55 P: 0 NM: 182 QRS: -75 QRSD: 130 T: 83 QT: 509 QTc: 487 Interpretive Statements Sinus bradycardia Atrial premature complexes Left bundle branch block Electronically Signed On 11-24-2024 6:16:[address] Pedro House Please click the below link to view image of tracing.
== END 2024-11-22 02:56 | disposition home or self-care (01) ==
LOC: ER 20:38
DX: S00.03XA Contusion of scalp, initial encounter (principal); E86.0 Dehydration; I48.91 Unspecified atrial fibrillation; I12.9 Hypertensive chronic kidney disease with stage 1 through stage 4 chronic kidney disease, or unspecified chronic kidney disease; N18.9 Chronic kidney disease, unspecified; Z85.820 Personal history of malignant melanoma of skin; Z79.01 Long term (current) use of anticoagulants; Z79.899 Other long term (current) drug therapy; W01.0XXA Fall on same level from slipping, tripping and stumbling without subsequent striking against object, initial encounter; Y93.89 Activity, other specified; Y92.89 Other specified places as the place of occurrence of the external cause; Y99.8 Other external cause status
CPT/HCPCS: 36415; 70450; 73080; 80053; 85025; 93005; 99284; 99285